=== PATIENT | male | born 1965 | race Caucasian/White ===

== ENCOUNTER 2023-08-14 11:57 | Emergency (ER) | payer OTHER ==
[2023-08-14 12:21] VITALS: BP 132/86; PULSE 66; RESP 18; TEMP 98.8; BMI 22.2
[2023-08-14] MEDS ORDERED: ACETAMINOPHEN 500 MG TABLET (FP) PO ONE (12:30)
[2023-08-14] MEDS ORDERED: ACETAMINOPHEN 325 MG TABLET (FP) ONE (12:37)
== END 2023-08-14 13:35 | disposition home or self-care (01) ==
LOC: FER 11:57
DX: M79.675 Pain in left toe(s) (principal); S92.912A Unspecified fracture of left toe(s), initial encounter for closed fracture; W22.8XXA Striking against or struck by other objects, initial encounter; Y93.53 Activity, golf
CPT/HCPCS: 73630-TC-LT; 99283-25

== ENCOUNTER 2024-04-10 09:53 | Emergency (ER) | payer OTHER ==
[2024-04-10 10:13] VITALS: BP 123/55; PULSE 69; RESP 16; TEMP 98; BMI 22.9
== END 2024-04-10 11:11 | disposition home or self-care (01) ==
LOC: FER 09:53
DX: S90.121A Contusion of right lesser toe(s) without damage to nail, initial encounter (principal); W22.8XXA Striking against or struck by other objects, initial encounter
CPT/HCPCS: 73630-TC-RT-FY; 99283-25